=== PATIENT | male | born 1945 | race Caucasian/White ===

== ENCOUNTER → 2020-05-12 | Outpatient (CLI) | payer MEDICARE, BC ==
[~2020-05-12] MED LIST: ASPI-630 PO; IOHEXOL 240 MG/ML 50ML VIAL. PO ONE; IOHEXOL 300 MG/ML 75 ML VIAL. IV ONE; LIPITOR80 MG PO; METO25TA2 PO
--- NOTE | 2020-05-12 17:23 | RAD ---
EXAM: CT Abdomen and Pelvis with IV contrast INDICATION: Reason: HX OF MALIGNANT NEOPLASM OF LIVER. / Spl. Instructions: / History: TECHNIQUE: Multi-detector row CT images were acquired from the lung bases through the abdomen and pel vis with the use of IV contrast. Sagittal and coronal images were acquired from the transaxial data. All CT scans performed at this facility utilize dose optimization techniques as appropriate to the ex am, including the following: Automated exposure control and adjustment of the mA and/or KV according to patient size (this includes techniques or standardized protocols for targeted exams where dose is indication/reason for exam). IV CONTRAST: Administered ORAL CONTRAST: Administered COMPARISON: Contrast-enhanced abdomen pelvis CT of 06/24/2014 FINDINGS: LOWER CHEST: Minimal atelectatic changes in the right greater than left lower lobes. No pleural effus ion or lung masses.. LIVER: Multiple hypodense lesions with peripheral dense nodularity are again seen, unchanged in size compatible with hepatic hemangiomas. The largest in the left hepatic lobe measure 2.5 and 2.8 cm. BILIARY SYSTEM: Gallbladder is unremarkable. Bile ducts are not dilated. PANCREAS: Unremarkable SPLEEN: Unremarkable ADRENALS: Normal right adrenal gland. Stable mild fullness of the left adrenal gland that could refl ect hyperplasia. KIDNEYS & URETERS: Unremarkable BLADDER: There is interval development of bilateral wall thickening, present in the setting of under distention. REPRODUCTIVE ORGANS: Prostate gland is enlarged measuring 5.3 cm in transverse diameter. GASTROINTESTINAL: Extensive colonic diverticulosis. No findings of bowel obstruction, perforation or acute inflammation. The appendix is normal. MESENTERY/PERITONEUM/RETROPERITONEUM: Unremarkable VASCULAR: Scattered arterial calcifications. Mild ectasia of the infrarenal abdominal aorta to 2.2 c m above the bifurcation with velocity takeoff of the AMARILYS. Noncalcified plaque could be origin of the left common iliac artery results in less than 50 percent stenosis. LYMPH NODES: No adenopathy OSSEOUS & SOFT TISSUES: Surgical clips in the superficial right groin are suggestive of previous lym phadenectomy. No acute or aggressive osseous lesions. There are facet hypertrophic changes and diffus e disc bulge at L4-5. IMPRESSION: 1. Multiple liver lesions on single phase abdominal CT showing features compatible with hemangiomas a re not significantly changed in size since 2014, compatible with a benign (or successfully treated ma lignant) etiology. No new findings suspicious for active malignancy. 2. Interval apparent bladder wall thickening nonspecific. Correlate for cystitis. 3. Prostatomegaly. Recommend clinical follow-up. Electronically signed by: Sarah Corona MD (05/12/2020 5:20 PM) [id number]
== END ==
LOC: CT 08:27
PROVIDERS: ATTEND Family Medicine
DX: N40.0 Benign prostatic hyperplasia without lower urinary tract symptoms (principal); I77.811 Abdominal aortic ectasia; K76.9 Liver disease, unspecified; Z85.05 Personal history of malignant neoplasm of liver
CPT/HCPCS: 74177; Q9967

== ENCOUNTER → 2021-07-14 | Outpatient (CLI) | payer MEDICARE, BC ==
[~2021-07-14] MED LIST changes: -IOHEXOL 240 MG/ML 50ML VIAL. PO ONE; -IOHEXOL 300 MG/ML 75 ML VIAL. IV ONE
[2021-07-14] MEDS: IOHEXOL 300 MG/ML 75 ML VIAL. IV ONE (09:15)
--- NOTE | 2021-07-14 10:25 | RAD ---
PQRS Compliance Statement: One or more of the following individualized dose reduction techniques were utilized for this examinat ion: 1. Automated exposure control 2. Adjustment of the mA and/or kV according to patient size 3. Use of iterative reconstruction technique CT abdomen/pelvis with contrast 07/14/2021 9:00 AM INDICATION: Hematuria, right flank pain for one month. History of kidney stones. COMPARISON: None available TECHNIQUE: Multiple axial CT images of the abdomen and pelvis were obtained before and after the intr avenous administration of 75 mL Omnipaque 300. Coronal and sagittal reformats are provided. FINDINGS: There is subsegmental atelectasis at the lung bases. Heart size within normal limits. Coronary artery vascular calcifications are present. Within the lateral segment left hepatic lobe there is a hepatic lesion measuring 3.3 cm. In the later al segment left hepatic lobe there is an additional 2.8 cm hepatic lesion abutting the left portal ve in. Within the medial segment left hepatic lobe there is a hypoattenuating lesion measuring 1.6 cm (s eries 5, image 21). Imaging appearance with puddling of contrast favors a hepatic hemangioma. Additio nal enhancing lesions are identified within the liver along the subcapsular liver which are indetermi grace however favor flash fill hemangioma. Calcifications within the sequela prior granulomatous expo sure. Adrenal glands, pancreas and gallbladder are normal in appearance. Infrarenal abdominal aortic aneurysm measures 2.3 x 2.5 cm with calcified and noncalcified atheromato us plaque.. There are no pathologically enlarged lymph nodes in the abdomen and pelvis. There is no a bdominal free fluid. There is no free intraperitoneal air. The kidneys enhance symmetrically. There is no suspicious renal mass. There is no hydronephrosis. The re are no calculi within the kidneys, ureters or urinary bladder. Prostate is mildly enlarged measuri ng 3.8 x 5.2 cm. There is nodular enhancement which projects at the trigone which could reflect benig n prostatic upper plasia. Mild bladder wall thickening may be secondary to underdistention versus chr onic outlet obstruction. Mild diverticulosis. Small and large bowel are normal in caliber. There is no evidence for bowel obst ruction. There are no pericolonic inflammatory changes. A normal, nondilated appendix is visualized w ithout adjacent inflammatory changes. No suspicious osseous abnormality. IMPRESSION: 1. There is mild enlargement of the prostate gland with nodular projection at the trigone of the blad kashif as may be seen with benign prosthetic hyperplasia. Direct visualization could be of benefit. Mild bladder wall thickening segment of under distention versus chronic outlet obstruction. Extent 2. No obstructive uropathy. No calculi identified within the kidneys, ureters or urinary bladder. 3. Infrarenal abdominal aortic aneurysm measures 2.3 x 2.5 cm. 4. Multifocal hepatic lesions have imaging characteristics most suggestive of hepatic hemangioma. The homogeneously enhancing lesions in the subcapsular right hepatic lobe may be better assessed by MRI abdomen with and without contrast, although favored flash fill hemangioma. Electronically signed by: Kirsten Sofia MD (07/14/2021 10:22 AM) [id number]
== END ==
LOC: CT 08:50
PROVIDERS: ATTEND Family Medicine
DX: N40.0 Benign prostatic hyperplasia without lower urinary tract symptoms (principal); I71.4 Abdominal aortic aneurysm, without rupture; K76.89 Other specified diseases of liver; I70.0 Atherosclerosis of aorta; J98.11 Atelectasis; I25.10 Atherosclerotic heart disease of native coronary artery without angina pectoris; N32.89 Other specified disorders of bladder; K57.90 Diverticulosis of intestine, part unspecified, without perforation or abscess without bleeding
CPT/HCPCS: 74178; Q9967